=== PATIENT | female | born 1980 | race Caucasian/White ===

== ENCOUNTER → 2020-03-06 08:32 | Outpatient (CLI) | payer BC, SELFPAY ==
--- NOTE | ~2020-03-06 | MM_ITS ---
Corrected Repot Added US order to this report. 03/06/2020 14:49 RENNY EXAMINATION: MM diagnostic analilia BI w annette and US breast LT limited HISTORY: Palpable lump of the upper inner left breast TECHNIQUE: Craniocaudal, mediolateral, and mediolateral oblique 3-D tomosynthesis images of the breasts were performed and synthetic 2-D images were generated. CAD analysis was submitted and interpreted. High resolution limited left breast ultrasound was performed. COMPARISON: None, baseline BREAST PARENCHYMAL COMPOSITION: The breasts are extremely dense, which lowers the sensitivity of mammography. FINDINGS: MAMMOGRAPHIC FINDINGS: Right breast: There is no evidence of suspicious mass, calcification, or architectural distortion to suggest malignancy. Left breast: There is an approximately 2.7 x 2.0 cm obscured, irregular equal density mass in the posterior third of the upper inner breast at the 11:00 location 8 cm from the nipple. ULTRASOUND: There is an approximately 3.0 x 1.8 cm oval, hypoechoic, parallel mass with indistinct margins, mixed posterior features, and no definite internal vascularity at the 11:00 location 7.5 cm from the nipple corresponding to the palpable abnormality of concern. IMPRESSION: 1. Suspicious left breast mass corresponding to the area of palpable abnormality. 2. Ultrasound-guided left breast biopsy is recommended. BI-RADS category 4, suspicious findings. Reviewed, dictated and finalized at location A. MTDD IMPRESSION: 1. Suspicious left breast mass corresponding to the area of palpable abnormalit y. 2. Ultrasound-guided left breast biopsy is recommended. BI-RADS category 4, suspicious findings.
== END ==
PROVIDERS: Visit Provider Obstetrics & Gynecology Gynecology
DX: N63.12 Unspecified lump in the right breast, upper inner quadrant (principal); R92.8 Other abnormal and inconclusive findings on diagnostic imaging of breast
CPT/HCPCS: 76642; 77062; 77066; G0279

== ENCOUNTER → 2021-05-12 07:45 | Outpatient (CLI) | payer BC, SELFPAY ==
--- NOTE | ~2021-05-12 | US_ITS ---
EXAMINATION: US thyroid EXAM DATE: 05/12/2021 08:22 INDICATION: Pain deficiency, goiter. TECHNIQUE: Multiple grayscale and Doppler images of the thyroid were obtained (by a technologist who performed the scan) and subsequently reviewed. Individual nodules and recommendations may be reporte d in accordance with TI-RADS system as designated by the 2017 ACR White Paper TI-RADS committee. The re is no prior study for comparison. FINDINGS: Right thyroid lobe measures 5.1 x 1.4 x 1.3 cm, the left measuring 4.6 x 0.9 x 1.3 cm. Relatively josias ogeneous thyroid echogenicity with expected amount of vascularity. No focal nodules identified. IMPRESSION: 1. Unremarkable thyroid ultrasound exam. Reviewed, dictated and finalized at location B.
== END ==
PROVIDERS: PCP Family Medicine; Visit Provider Physician Assistant
DX: E01.0 Iodine-deficiency related diffuse (endemic) goiter (principal)
CPT/HCPCS: 76536

== ENCOUNTER 2022-05-18 00:35 | Day surgery (SDC) | payer BC, SELFPAY ==
[2022-05-12 12:22] VITALS: BMI 28.0
--- NOTE | 2022-05-12 12:32 | PC.NURSE ---
Report to the Outpatient Waiting Room, entrance under the green pavilion located off [facility], at time 0600 on date 05/18/22. OR Time: 0730. Time changes happen often and if your time is changed the preop area will call you the afternoon before. - You and your visitor will be asked to self-screen and do not enter if you have any COVID symptoms. - Only one visitor and NO children visitors are allowed at this time. - The patient visitor is requested to leave or wait in car when not with patient due to restrictions. - A mask is required within the hospital. Patients may have clear liquids (water, carbonated beverages, clear teas, apple juice) until 3 hours prior to surgery with a maximum of 20 ounces. - No food from midnight until time of surgery Take the following medications with a SIP of water the morning of surgery: AMLODIPINE, BUSPIRONE Medications to discontinue per physician: N/A Date to take last dose: N/A Please no make-up, nail ghanaian, hairspray, perfume, deodorant, or body powder the day of surgery. No jewelry (including any body piercings) or valuables the day of surgery, leave them at home. Please take a shower or bath the night before, or the morning of, surgery with an antibacterial soap. Wear comfortable, loose fitting clothing. - Jewelry must be removed prior to entering the operating room. Rings and piercings that are not removed may be cut off. - The hospital will not accept responsibility for valuables. - Please leave all valuables, including medications, at home the day of surgery. If you are going home after surgery, a licensed tow motor driver must drive you home. - NO public transportation without another adult. - We recommend that an adult stay with you for 24 hours following discharge. - We also recommend that you do not drive, make important decision, drink alcoholic beverages, or take any drugs that were not prescribed by your health care provider for at least 24 hours after your discharge time. Follow any additional instructions given to you from your surgeon. If you or anyone in your household have experienced Covid symptoms in the past week, please notify your surgeon or the nurse liaison at the phone number below for possible testing. Telephone instructions given to PT - JUAN LUIS FRASER and asked if any additional questions and then verbalized understanding. Patient advised to call surgeon office or pre surgery nurse liaison [phone] if any additional questions.
[2022-05-18] VITALS (9 sets, daily range): BP systolic 107–130; BP diastolic 64–89; PULSE 60–106; RESP 10–18; TEMP 36.1–36.7; O2SAT 96–100; BMI 27.3
--- NOTE | 2022-05-18 06:05 | ECG_ITS ---
Measurements Intervals [place] Rate: 70 P: 5 TX: 149 QRS: 11 QRSD: 85 T: 34 QT: 384 QTc: 417 Interpretive Statements SINUS RHYTHM RSR' IN V1 OR V2, PROBABLY NORMAL VARIANT NORMAL ECG NO PREVIOUS ECG AVAILABLE FOR COMPARISON Electronically Signed On 05-18-2022 7:47:19 CDT by Ryley Infante D.O.
[2022-05-18 06:34] LABS: Glucose Point of Care 129 mg/dl (65-105)
[2022-05-18] MEDS: LACTATED RINGERS 1,000 ML 30 ML IV CONT (06:45)
[2022-05-18] MEDS: ACETAMINOPHEN 500 MG TABLET 1000 MG PO (06:50)
[2022-05-18] MEDS: KETOROLAC 15 MG/ML VIAL (*BKC) IV PUSH (06:52)
--- NOTE | 2022-05-18 06:56 | WPDANESEPPF ---
Anes - Initial Pre Proc Eval Procedure: Operation Date: 05/18/22 07:30 Proposed Procedures p Laparoscopic Bilateral Salpingo-Oophorectomy - Yumi Baxter MD Date/Time: 05/18/22 06:56 Surgeon: Yumi Baxter MD Pre Op Diagnosis: Breast Cancer Patient Data Age: 42 Gender: F Height: 1.75 m Weight: 84.2 kg Last Vital Signs Temp 36.1 C L 05/18/22 06:40 Pulse 79 05/18/22 06:40 Resp 14 05/18/22 06:40 BP 112/72 05/18/22 06:40 Pulse Ox 100 05/18/22 06:40 O2 Del Method Room Air 05/18/22 06:40 Allergies Allergy/AdvReac Type Severity Reaction Status Date / Time No Known Allergies Allergy Verified 05/18/22 06:32 Home Medications Medication Instructions Recorded Confirmed Type cetirizine 10 mg capsule 10 mg PO DAILY 11/02/19 05/12/22 History blood sugar diagnostic ([employer]Touch #100 ea 10/30/20 05/06/22 Rx Ultra Blue Test Strip) esomeprazole magnesium 20 mg 20 mg PO DAILY 04/30/21 05/12/22 History capsule,delayed release (Nexium) lancets 33 gauge (OneTouch Delica #100 ea 04/30/21 05/06/22 Rx Plus Lancet) metformin 1,000 mg tablet 1,000 mg PO BID #180 tabs 09/29/21 05/12/22 Rx anastrozole 1 mg tablet 1 mg PO DAILY 11/12/21 05/12/22 History valacyclovir 1 gram tablet 1,000 mg PO Q12H PRN cold sores 11/20/21 05/12/22 Rx (Valtrex) #30 tabs buspirone 10 mg tablet 10 mg PO TID #90 tabs 02/26/22 05/18/22 Rx simvastatin 20 mg tablet See Rx Instructions .Route 03/11/22 05/12/22 Rx .COMPLEX #90 tabs amlodipine 5 mg tablet See Rx Instructions .Route 05/06/22 05/18/22 Rx .COMPLEX #90 tabs sitagliptin 100 mg tablet (Januvia) 100 mg PO DAILY #30 tabs 05/07/22 05/12/22 Rx Laboratory Tests 05/18/22 06:32 POC Capillary Glucose 129 mg/dl H mg/dl (65-105) Patient hx anesthesia problems: none Family hx anesthesia problems: none Results Review: All pre-operative results and documents have been reviewed as part of the pre-operative evaluation. [facility] Past Medical History Medical History Breast cancer Diabetes HLD (hyperlipidemia) Hypertension Surgical History Surgical History H/O breast reconstruction History of mastectomy Hx of appendectomy (~2019) S/P gastric sleeve procedure Family History Family History Other Cerebrovascular accident Diabetes mellitus Family history of mental disorder Hypertension Social History Social History Smoking status: Never smoker Second hand tobacco smoke exposure: No Alcohol intake: current Alcohol use details: 1-2/MONTH Substance use: never Substance use type: does not use Living arrangements: with family Spiritual care concerns: No Anes - Eval Final PreProcedure Day of Procedure 05/18/22 06:56 Patient weight: overweight Heart: regular rate and rhythm Lungs: clear to auscultation Airway: Mallampati scale class II Neurological: alert and oriented Last oral intake: >/= 8 hours ASA classification: III Emergent: no Anesthetic plan: proceed Anesthesia type and monitoring: general ETT and standard monitoring Results Review: All pre-operative results and documents have been reviewed as part of the pre-operative evaluation. Informed Consent: The patient's anesthetic plan and its attendant risks and benefits were discussed with the patient/family/POA. Questions were solicited and answers provided to the satisfaction of the patient/family/POA.
--- NOTE | 2022-05-18 07:14 | PM.HPGS ---
History of Present Illness History of Present Illness Consent: Risks, benefits, and alternatives have been discussed and questions answered. Patient agrees to proceed with procedure. Chief complaint: Breast Cancer Narrative: Socorro Pugh is a 42 year old female with history of left breast ductal carcinoma presenting for laparoscopic bilateral salpingo-oophorectomy. Per oncology recommendations we will be removing both tubes and ovaries. Risks infection, bleeding, injury to internal organs, and general anesthesia were reviewed. In addition, the risks oophorectomy on long-term health were reviewed. Patient voices understanding and agrees to proceed. Review of Systems Constitutional: Constitutional: Reports night sweats (And hot flashes) Genitourinary: Genitourinary: Reports vaginal dryness and Reports other (Dyspareunia) [facility] Past Medical History Medical History Breast cancer Diabetes HLD (hyperlipidemia) Hypertension Surgical History Surgical History H/O breast reconstruction History of mastectomy Hx of appendectomy (~2019) S/P gastric sleeve procedure Family History Family History Other Cerebrovascular accident Diabetes mellitus Family history of mental disorder Hypertension Social History Social History Smoking status: Never smoker Second hand tobacco smoke exposure: No Alcohol intake: current Alcohol use details: 1-2/MONTH Substance use: never Substance use type: does not use Living arrangements: with family Spiritual care concerns: No Meds Home Medications and Allergies Home Medications Medication Instructions Recorded Confirmed Type cetirizine 10 mg capsule 10 mg PO DAILY 11/02/19 05/12/22 History blood sugar diagnostic ([employer]Touch #100 ea 10/30/20 05/06/22 Rx Ultra Blue Test Strip) esomeprazole magnesium 20 mg 20 mg PO DAILY 04/30/21 05/12/22 History capsule,delayed release (Nexium) lancets 33 gauge (Post-A-VoxTouch Delica #100 ea 04/30/21 05/06/22 Rx Plus Lancet) metformin 1,000 mg tablet 1,000 mg PO BID #180 tabs 09/29/21 05/12/22 Rx anastrozole 1 mg tablet 1 mg PO DAILY 11/12/21 05/12/22 History valacyclovir 1 gram tablet 1,000 mg PO Q12H PRN cold sores 11/20/21 05/12/22 Rx (Valtrex) #30 tabs buspirone 10 mg tablet 10 mg PO TID #90 tabs 02/26/22 05/18/22 Rx simvastatin 20 mg tablet See Rx Instructions .Route 03/11/22 05/12/22 Rx .COMPLEX #90 tabs amlodipine 5 mg tablet See Rx Instructions .Route 05/06/22 05/18/22 Rx .COMPLEX #90 tabs sitagliptin 100 mg tablet (Januvia) 100 mg PO DAILY #30 tabs 05/07/22 05/12/22 Rx Allergies Allergy/AdvReac Type Severity Reaction Status Date / Time No Known Allergies Allergy Verified 05/18/22 06:32 Vital Signs Vital Signs - 24 hr 05/18/22 06:40 Temperature 96.9 F L Pulse Rate 79 Respiratory Rate 14 Blood Pressure 112/72 Pulse Oximetry 100 Oxygen Delivery Room Air Exam Const: General: healthy appearing and alert Orientation/consciousness: patient oriented x3 Resp: Effort & Inspection: normal respiratory effort GI: GI Palp: Yes Soft to palpation, No Tenderness to palpation present (GI) and No Palpable mass present : Speculum Exam - Vagina: normal vaginal discharge Speculum Exam - Cervix: normal appearance of the cervix Bimanual exam- vagina & uterus: uterine size normal and consistency normal Bimanual Exam- Adnexa, other: normal adnexae and No adnexal tenderness Neuro: General: patient oriented x3 Assessment and Plan Assessment and plan (1) Breast cancer: Qualifiers: Breast location: unspecified site of breast Estrogen receptor status: positive Patient sex: female Laterality: bilateral Qualified Code(s): C50.911 - Malignant neoplasm of unspecified site of r
--- NOTE | 2022-05-18 07:18 | WPDHPUPDATE1 ---
History and Physical Update Update Date/Time: 05/18/22 07:18 History and Physical has been reviewed, including an updated exam of the patient. There are NO changes in the patient's condition. Risks, benefits, and alternatives have been discussed and questions answered. Patient agrees to proceed with procedure.
--- NOTE | 2022-05-18 08:19 | W.PM.PROC2 ---
Procedure Note - Detailed Date of Procedure 05/18/22 Pre-op Diagnosis Breast Cancer Post-op Diagnosis Same Procedure Performed Laparoscopic bilateral salpingo-oophorectomy Surgeon Yumi Baxter MD Anesthesia General Findings Normal-appearing tubes, ovaries, and uterus. Omental adhesions to the left ovary. Description of Procedure The patient was taken to the operating room and placed under anesthesia in the dorsal lithotomy position. She was prepped and draped in the usual sterile fashion. Bladder was previously drained by the staff. [place] speculum was placed in the vagina and the cervix grasped on the anterior lip with a tenaculum. The acorn manipulator was placed. The vaginal speculum was removed. Attention was then turned to the abdomen where a vertical skin incision was made below the false umbilicus. The abdomen is tented and the Veress needle placed. Water drop test is normal and opening patient pressure was 4mmHg. Pneumoperitoneum was obtained to a patient pressure of 15mmHg. The Veress needle was then removed and the abdomen tented while the 5mm trocar was placed. Intra-abdominal placement was confirmed with the laparoscope. The patient is placed in Trendelenburg and a 5mm skin incision made 2cm above the symphysis pubis in the midline. The blunt probe was used to bring the tubes into the visual field. A 2nd 5mm trocar is placed in the right lower quadrant. While holding the right mesosalpinx with a grasper, the LigaSure was used to cauterize and cut along the mesosalpinx. Once the majority of the tube is excised the tube was crossclamped with the LigaSure, cauterized, and cut. The identical procedure was performed on the opposite side. The 5mm right lower quadrant trocar was exchanged for a 10 mm trocar. The endobag was placed and tubes and ovaries were placed in the past. Good hemostasis is noted. Pneumoperitoneum was reduced. The fascial incision is extended to allow removal of tubes and ovaries. The fascia was closed using 0 Vicryl in a [id number] suture. Skin incisions are closed using 4-0 Vicryl in a subcuticular fashion. Dermaflex was placed over the incision. Estimated Blood Loss 5 Drains No Packing No Pathology Yes (Bilateral tubes and ovaries) Complications No immediate complications Condition Stable Disposition PACU
[2022-05-18] MEDS: fentaNYL CITRATE INJ (*CRX) 100 MCG/2 ML VIAL 25 MCG IV PUSH ×4 (08:57→09:07)
[2022-05-18 09:01] LABS: Glucose Point of Care 199 mg/dl (65-105)
[2022-05-18] MEDS: oxyCODONE HCL (*CRX) 5 MG TAB IR PO (10:10)
== END 2022-05-18 10:18 | disposition home or self-care (01) ==
PROVIDERS: PCP Family Medicine; Visit Provider Obstetrics & Gynecology Gynecology
PROC: (CPT 49320; principal; 2022-05-18 07:30)
DX: Z40.02 Encounter for prophylactic removal of ovary(s) (principal); Z85.3 Personal history of malignant neoplasm of breast; E11.9 Type 2 diabetes mellitus without complications; E78.5 Hyperlipidemia, unspecified; I10 Essential (primary) hypertension; Z98.84 Bariatric surgery status; Z79.84 Long term (current) use of oral hypoglycemic drugs; Z79.811 Long term (current) use of aromatase inhibitors; Z17.0 Estrogen receptor positive status [ER+]; Z90.13 Acquired absence of bilateral breasts and nipples
CPT/HCPCS: 58661; 82948; 88305; 93005; A9270; J0330; J1100; J1885; J2250; J2405; J2704; J2710; J3010; J7030; J7120

== ENCOUNTER → 2022-09-18 08:52 | Outpatient (CLI) | payer BC, SELFPAY ==
--- NOTE | ~2022-09-18 | XR_ITS ---
XR lumbar spine min 4V DATE: 09/18/2022 09:43 INDICATION: Low back pain TECHNIQUE: AP, lateral, bilateral oblique and coned lateral lumbosacral views COMPARISON: None FINDINGS: There is slight dextroscoliosis of the lumbar spine. No fracture or bone destruction, spondylolysis or spondylolisthesis. Lumbar and lumbosacral interspac es are well preserved. The sacroiliac joints are intact. Surgical clips overlie the lower abdomen and right pelvis. Surgical clips, right upper quadrant, likely due to cholecystectomy. Probable lap band catheter and reservoir. IMPRESSION: Slight lumbar dextroscoliosis Reviewed, dictated and finalized at location B. 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
== END ==
PROVIDERS: PCP Family Medicine; Visit Provider Physician Assistant
DX: M54.50 Low back pain, unspecified (principal)
CPT/HCPCS: 72110

== ENCOUNTER → 2022-10-20 17:15 | Outpatient (CLI) | payer BC, SELFPAY ==
--- NOTE | ~2022-10-20 | MR_ITS ---
MRI of the lumbar spine Clinical History: Back pain Technique: Axial T2-weighted images, and sagittal T1-weighted, T2-weighted, and T2 fat-sat images wer e acquired. Findings: There is no fracture or subluxation of the lumbar spine. Vertebral bodies maintain normal h eight and alignment. No bone marrow signal abnormality identified. At L1-L2, there is mild disc bulge. No spinal canal stenosis or neural foraminal narrowing. Probable small annular fissure. At L2-L3, there is diffuse disc bulge with minimal facet joint hypertrophy. There is moderate right n eural foraminal narrowing and mild left neural foraminal narrowing. No arron spinal canal stenosis. At L3-L4, there is diffuse disc bulge with minimal facet hypertrophy. No spinal canal stenosis. No de finite neural foraminal narrowing. At L4-L5, there is right paracentral to right foraminal disc protrusion, superimposed upon mild disc bulge. There is right lateral recess stenosis and moderate right neural foraminal narrowing. Left brissa ral foramen is minimally narrowed. At L5-S1, there is a central disc protrusion. No arron spinal canal stenosis. Bilateral neural forami na are preserved. Paravertebral soft tissues are unremarkable. Impression: Overall mild degenerative spondylosis, as detailed above, with findings worst at L2-L3 and L4-L5. Reviewed, dictated and finalized at location . MARKETING Impression: Overall mild degenerative spondylosis, as detailed above, with findings worst a t L2-L3 and L4-L5.
== END ==
PROVIDERS: PCP Family Medicine; Visit Provider Physician Assistant
DX: M47.816 Spondylosis without myelopathy or radiculopathy, lumbar region (principal); M54.50 Low back pain, unspecified
CPT/HCPCS: 72148